=== PATIENT | male | born 1980 | race Caucasian/White ===

== ENCOUNTER 2024-11-05 22:43 | Emergency (ER) | payer SELFPAY ==
[2024-11-05 22:46] VITALS: BP 126/84
[2024-11-05 22:51] VITALS: BP 126/84
--- NOTE | 2024-11-05 22:56 | ED.GENMED ---
History of Present Illness
General
Chief Complaint: Blood Pressure Problem
Source: patient
Time Seen by Provider: 11/05/24 22:51
History of Present Illness
History of Present Illness:
44-year-old male brought to the emergency room by law enforcement for medical clearance. Patient was arrested and when taken to the [facility] was referred to the emergency room for elevated heart rate and blood pressure. Patient does have a
history of SVT. He also has a history of [id number] diabetes. He last took his medications this morning. He denies any chest pain, shortness of breath, abdominal pain. He admits to being very anxious about the fact he is under arrest.
Phy Exam
Physical Exam
Physical Exam:
General: Awake, Alert, Oriented X3. No acute distress.
Vitals: Tachycardic
Head: Atraumatic
Eyes: Pupils equal, EOMI
Throat: Airway intact, no exudates
Neck: Trachea midline
Lungs: Clear and equal b/l
Heart: Regular rate, no murmurs
Abd: Soft, Nontender, No pulsatile mass
Neuro: Nonfocal
Skin: Warm, dry, no rash
Extremities: pulses equal b/l, no edema
Course
Orders/Labs/Results
Orders:
Orders
11/05/24 22:51
ECG [Electrocardiogram (*1)] Urgent
Reason for Study: Bradycardia / Tachycardia
EKG- Treatment ONCE
11/05/24 22:54
0.9% Sodium Chloride 1000 ml [Nss] 1,000 ml IV BOLUS
Metoprolol [Lopressor] 25 mg PO NOW STA
11/05/24 23:06
Basic Metabolic Panel Urgent
TSH Urgent
Abnormal Lab Results
11/05/24
23:06
Carbon Dioxide 21 L mmol/L
(22-30)
Glucose 211 H mg/dl
(70-99)
11/05/24 23:06
Vital Signs
Initial and Last Documented VS:
Initial Vital Signs
BP Pulse Ox
126/84 97
11/05/24 22:46 11/05/24 22:46
Last Documented Vital Signs
Temp Pulse Resp BP Pulse Ox
99.2 F 104 22 120/82 95
11/05/24 23:22 11/06/24 00:30 11/06/24 00:30 11/06/24 00:00 11/06/24 00:30
MDM/Problems Addressed
Differential Diagnosis Includes:
Dehydration, anemia, missed dose of beta-brianda, sinus tachycardia related to the stress and anxiety from being incarcerated
MDM/Problems Addressed:
Patient presents for evaluation due to abnormal vital signs when he was incarcerated. Patient given IV fluid and the evening dose of metoprolol that he was due for. Blood pressure and heart rate significantly improved. Heart rates down to the 90s
low 100s. Labs are unremarkable. Patient cleared for incarceration.
Chronic conditions affecting care: DM and HTN
*Pulse Oximetry
SaO2: 95
Oxygen Mode of Delivery: Room air
Patient hypoxic: no
*EKG
Interpreted by ED Provider?: Yes
Interpretation: abnormal
Heart Rate: 134
Rate: tachycardiac
Rhythm: sinus tachycardia
[place]: normal axis
Interval: normal interval
QRS Pattern: normal QRS
Ischemia: no ischemia
*[employer] Interpretation
Rate: tachycardiac
Interpretation: abnormal
Heart Rate: 134
Rhythm: sinus tachycardia
*Critical Care Note
Total Time (30-74mins, 75-104mins- exclusive of procedures): Not Applicable
ED Attending Note
-
Portions of this chart may have been created with voice recognition software.� Occasional wrong word or��sound alike� substitutions may have occurred due to the inherent limitations of voice recognition software.
Discharge Plan
Departure
Patient Disposition: Penitentiary
Date of Disposition: 11/06/24
Time of Disposition: 00:42
Condition: Good
Discharge Problem:
Sinus tachycardia, Dehydration
Instructions: Dehydration in adults - ED (DC)
Prescriptions:
No Action
metformin 1,000 mg Tablet
metoprolol tartrate 25 mg Tablet
Jardiance
Lexapro
allopurinol
Activity Restrictions/Additional Instructions:
Patient is medically cleared for incarceration.
I suspect his heart rate and blood pressure were elevated due to mild dehydration and primarily due to anxiety about being incarcerated. Patient will need to continue taking his metoprolol 25 mg twice daily as well as other normal medications.
Missing a dose of his beta-brianda will result in a elevated heart rate.
Interventions
Interventions:
*Risk Screen - Suicide Last Done: 11/05/24 23:36
*General Assessment Last Done: 11/05/24 22:51
*Neglect/Abuse Screening Last Done: 11/05/24 22:51
*ED- Fall Risk Assessment Last Done: 11/05/24 22:51
*ED COVID-19 Vaccine History Last Done: 11/05/24 22:51
*Nursing Disposition Last Done: 11/06/24 00:56
ED- Cardiac Assessment Last Done: 11/05/24 23:35
ED- Neurological Assessment Last Done: 11/05/24 23:35
ED- Pulmonary Assessment Last Done: 11/05/24 23:35
Discharge Date and Time
Discharge Date/Time: 11/06/24 00:57
Print Language: [id number]
[2024-11-05 23:00] VITALS: BP 140/81
[2024-11-05] MEDS: NSS 1000 IV (23:32)
[2024-11-05] MEDS: LOPRESSOR 25 MG PO (23:32)
[2024-11-05 23:42] LABS: Blood Urea Nitrogen 11 mg/dl (9-20); Calcium 10.1 mg/dl (8.4-10.2); Carbon Dioxide 21 mmol/L (22-30); Chloride 106 mmol/L (98-107); Estimated Creatinine Clearance > 125 ml/min; Glucose 211 mg/dl (70-99); Potassium 4.2 mmol/L (3.5-5.1); Sodium 139 mmol/L (135-145); eGFR > 60.00
[2024-11-05 23:56] VITALS: BP 119/86
[2024-11-06] VITALS: BP 120/82
[2024-11-06 00:12] LABS: TSH 1.99 uIU/ml (0.47-4.68)
== END 2024-11-06 00:57 ==
LOC: EMR 22:43
PROVIDERS: EMERGENCY PHYSICIAN Emergency Medicine; FAMILY PHYSICIAN Nurse Practitioner Family
DX: E86.0 Dehydration (principal); R00.0 Tachycardia, unspecified; E11.9 Type 2 diabetes mellitus without complications; I10 Essential (primary) hypertension; Z65.3 Problems related to other legal circumstances
CPT/HCPCS: 96360; 99284; 80048; 84443; 93005